=== PATIENT | male | born 1990 | race Caucasian/White ===

== ENCOUNTER 2024-04-06 00:22 | Day surgery (SDC) | payer OTHER, SELFPAY ==
[2024-03-15 13:01] VITALS: BMI 26.6
--- NOTE | 2024-04-06 13:04 | P.HP_ITS ---
History of Present Illness History of Present Illness Consent: Risks, benefits, and alternatives have been discussed and questions answered. Patient agrees to proceed with procedure. Chief complaint: Diarrhea, unspecified Narrative: Moo Rodriguez is a 33 year old male here for first colonoscopy because of diarrhea, no EPI, normal calprotectin in stool. 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 Gender identity (if verbalized by the patient): Male Sexual Orientation (if Verbalized by the Patient): Straight or Heterosexual Spiritual care concerns: No Agree to blood products: Yes Meds Home Medications and Allergies Home Medications Medication Instructions Recorded Confirmed Type tadalafil 20 mg tablet (Cialis) 20 mg PO DAILY PRN sexual activity 02/07/24 03/15/24 Rx #30 tabs dicyclomine 10 mg capsule 10 mg PO QID #120 caps 02/16/24 03/15/24 Rx sumatriptan succinate 25 mg tablet See Rx Instructions PO .COMPLEX 02/17/24 03/15/24 Rx #14 tabs ubrogepant 50 mg tablet (Ubrelvy) 50 mg PO PRN PRN Migraine Headache 03/15/24 03/15/24 History Allergies Allergy/AdvReac Type Severity Reaction Status Date / Time No Known Allergies Allergy Verified 04/06/24 13:04 Exam Const: General: comfortable and no acute distress HENMT: Face/Nose/Sinus: Normal nares present Eyes: General: appearance normal, both eyes and all related structures Neck: Neck: no JVD Resp: Auscultation: clear to auscultation bilaterally Cardio: Rate: regular rate Rhythm: regular rhythm GI: Inspection: non-distended GI Palp: Yes Soft to palpation Skin: General skin exam: normal color Neuro: General: gait normal Speech: normal speech Extrem: General: normal to inspection Psych: Mental Status: mental status grossly normal Assessment and Plan Assessment and plan (1) Diarrhea: Qualifiers: Diarrhea type: unspecified type Qualified Code(s): R19.7 - Diarrhea, unspecified Code(s): R19.7 - Diarrhea, unspecified Status: Acute Assessment and Plan: colonoscopy with random bx
[2024-04-06 13:05] VITALS: BP 123/78; PULSE 111; RESP 16; TEMP 36.5; O2SAT 100
--- NOTE | 2024-04-06 13:08 | P.PNAN_ITS ---
Anes - Initial Pre Proc Eval Procedure: Operation Date: 04/06/24 15:30 Proposed Procedures p Colonoscopy - Vaibhav Banuelos MD Date/Time: 04/06/24 13:08 Surgeon: Vaibhav Banuelos MD Pre Op Diagnosis: Diarrhea, unspecified Patient Data Age: 33 Gender: M Height: 1.75 m Weight: 86.1 kg Last Vital Signs Temp 97.7 F 04/06/24 13:05 Pulse 111 H 04/06/24 13:05 Resp 16 04/06/24 13:05 BP 123/78 04/06/24 13:05 Pulse Ox 100 04/06/24 13:05 O2 Del Method Room Air 04/06/24 13:05 Allergies Allergy/AdvReac Type Severity Reaction Status Date / Time No Known Allergies Allergy Verified 04/06/24 13:04 Home Medications Medication Instructions Recorded Confirmed Type tadalafil 20 mg tablet (Cialis) 20 mg PO DAILY PRN sexual activity 02/07/24 03/15/24 Rx #30 tabs dicyclomine 10 mg capsule 10 mg PO QID #120 caps 02/16/24 03/15/24 Rx sumatriptan succinate 25 mg tablet See Rx Instructions PO .COMPLEX 02/17/24 03/15/24 Rx #14 tabs ubrogepant 50 mg tablet (Ubrelvy) 50 mg PO PRN PRN Migraine Headache 03/15/24 03/15/24 History Patient hx anesthesia problems: none Family hx anesthesia problems: none Results Review: All pre-operative results and documents have been reviewed as part of the pre- operative evaluation. 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 Gender identity (if verbalized by the patient): Male Sexual Orientation (if Verbalized by the Patient): Straight or Heterosexual Spiritual care concerns: No Agree to blood products: Yes Anes - Eval Final PreProcedure Day of Procedure 04/06/24 13:08 Patient weight: normal Heart: regular rate and rhythm Lungs: clear to auscultation Airway: Mallampati scale class II Neurological: alert and oriented Last oral intake: >/= 8 hours ASA classification: II Emergent: no Anesthetic plan: proceed Anesthesia type and monitoring: general GIVS and standard monitoring Results Review: All pre-operative results and documents have been reviewed as part of the pre- operative evaluation. Informed Consent: The patient's anesthetic plan and its attendant risks and benefits were discussed with the patient/family/POA. Questions were solicited and answers provided to the satisfaction of the patient/family/POA.
[2024-04-06] MEDS: LACTATED RINGERS 1,000 ML 150 ML IV CONT (13:11)
[2024-04-06 13:27] VITALS: BP 100/63; PULSE 73; RESP 16; O2SAT 97
[2024-04-06 13:37] VITALS: BP 106/59; PULSE 65; RESP 16; O2SAT 97
[2024-04-06 13:47] VITALS: BP 109/71; PULSE 74; RESP 18; O2SAT 100
== END 2024-04-06 13:55 | disposition home or self-care (01) ==
PROVIDERS: PCP Family Medicine; Referring Provider Nurse Practitioner Family; Visit Provider Internal Medicine Gastroenterology
PROC: 0DJD8ZZ Inspection of Lower Intestinal Tract, Via Natural or Artificial Opening Endoscopic (ICD-10-PCS; CPT 45378; principal; 2024-04-06 15:30)
DX: R19.7 Diarrhea, unspecified (principal); Z87.891 Personal history of nicotine dependence
CPT/HCPCS: 45380; 88305; J2704; J7120